=== PATIENT | female | born 1960 | race Caucasian/White ===

== ENCOUNTER → 2016-09-01 | Outpatient (CLI) | payer MEDICARE, OTHER | LOC: HEART 5 10:41 | DX: J44.9 Chronic obstructive pulmonary disease, unspecified (principal); F17.210 Nicotine dependence, cigarettes, uncomplicated; R94.2 Abnormal results of pulmonary function studies | CPT/HCPCS: 94060; 94729 ==

== ENCOUNTER → 2016-09-16 | Outpatient (CLI) | payer MEDICARE, OTHER | LOC: KOH-I 09:36 | DX: I73.9 Peripheral vascular disease, unspecified (principal) | CPT/HCPCS: 93926 ==

== ENCOUNTER → 2016-09-19 | Outpatient (CLI) | payer MEDICARE, OTHER | LOC: KOH-I 14:41 | DX: M25.561 Pain in right knee (principal); I77.1 Stricture of artery | CPT/HCPCS: 73564 ==

== ENCOUNTER → 2020-12-04 | Outpatient (CLI) | payer MEDICARE, OTHER | LOC: RAD 07:39 | DX: R13.10 Dysphagia, unspecified (principal); R09.89 Other specified symptoms and signs involving the circulatory and respiratory systems | CPT/HCPCS: 74220; 74230; 92611-GN ==

== ENCOUNTER → 2021-04-08 | Outpatient (CLI) | payer MEDICARE, OTHER | LOC: KOH-I 12:25 | DX: J18.9 Pneumonia, unspecified organism (principal); R91.8 Other nonspecific abnormal finding of lung field | CPT/HCPCS: 71046 ==

== ENCOUNTER → 2021-05-18 | Outpatient (CLI) | payer MEDICARE, OTHER | LOC: HEART 5 15:09 | DX: J84.112 Idiopathic pulmonary fibrosis (principal); R91.8 Other nonspecific abnormal finding of lung field | CPT/HCPCS: 71046; 94060; 94729 ==

== ENCOUNTER → 2021-06-15 | Outpatient (CLI) | payer MEDICARE, OTHER | LOC: KOH-I 12:55 | DX: R94.2 Abnormal results of pulmonary function studies (principal); J44.9 Chronic obstructive pulmonary disease, unspecified | CPT/HCPCS: 71250 ==

== ENCOUNTER → 2021-06-17 | Outpatient (CLI) | payer MEDICARE, OTHER | LOC: ECHO 10:30 | DX: R01.1 Cardiac murmur, unspecified (principal); I27.20 Pulmonary hypertension, unspecified; I08.8 Other rheumatic multiple valve diseases | CPT/HCPCS: ECHO; 93306 ==

== ENCOUNTER 2021-06-27 14:34 | Inpatient (IN) | payer MEDICARE, OTHER ==
[~2021-06-27] VITALS: Ht 165.1 cm; Wt 67.2 kg
[2021-06-27 15:39] LABS: HEMOGLOBIN 10.1 gm/dl (12.3-15.3); RED BLOOD COUNT 3.88 M/UL (4.00-5.10); WHITE BLOOD COUNT 20.2 K/UL (4.5-11.0)
[2021-06-27 16:58] LABS: BUN/CREATININE RATIO 15 (0-10)
[2021-06-28 01:28] LABS: HEMOGLOBIN 9.6 gm/dl (12.3-15.3); RED BLOOD COUNT 3.71 M/UL (4.00-5.10)
[2021-06-28 01:32] LABS: WHITE BLOOD COUNT 9.9 K/UL (4.5-11.0)
[2021-06-28] MEDS ORDERED: ESOMEPRAZOLE MA40 MG PO (08:58)
[2021-06-28] MEDS ORDERED: FAMOTIDINE20 MG PO (08:59)
[2021-06-28] MEDS ORDERED: PEPCID20 MG PO (08:59)
[2021-06-28] MEDS ORDERED: LEVOTHYROXINE75 MCG PO (08:59)
[2021-06-28] MEDS ORDERED: CYCLOBENZAPRINE10 MG PO (09:00)
[2021-06-28] MEDS ORDERED: ONDANSETRON HCL4 MG PO (09:00)
[2021-06-28] MEDS ORDERED: BELSOMRA10 MG PO (09:01)
[2021-06-28] MEDS ORDERED: MONTELUKAST SOD10 MG PO (09:01)
[2021-06-28] MEDS ORDERED: ROPINIROLE HCL0.5 MG PO (09:01)
[2021-06-28] MEDS ORDERED: LORATADINE10 MG PO (09:02)
[2021-06-28] MEDS ORDERED: ROPINIROLE HCL2 MG PO (09:02)
[2021-06-28] MEDS ORDERED: GABAPENTIN300 MG PO (09:03)
[2021-06-28] MEDS ORDERED: DULOXETINE HCL30 MG PO (09:03)
[2021-06-28] MEDS ORDERED: ARTANE 2MG TABLE2 MG PO (09:03)
[2021-06-28] MEDS ORDERED: LINZESS145 MCG PO (09:04)
[2021-06-28] MEDS ORDERED: PROAIR HFA8.5 GM INH (09:05)
[2021-06-28] MEDS ORDERED: ECOTRIN81 MG PO (09:06)
--- NOTE | 2021-06-28 16:37 | NUR ---
OTHRO VITALS AT 1637 LAYING 155/88 BP 81 HR SITTING 165/84 BP 97 HR STANDING 113/63 BP 94 HR
[2021-06-29 05:06] LABS: HEMOGLOBIN 9.7 gm/dl (12.3-15.3); RED BLOOD COUNT 3.74 M/UL (4.00-5.10)
[2021-06-29 05:13] LABS: BUN/CREATININE RATIO 9 (0-10)
[2021-06-29 05:25] LABS: WHITE BLOOD COUNT 5.9 K/UL (4.5-11.0)
[2021-06-30 03:16] LABS: HEMOGLOBIN 10.6 gm/dl (12.3-15.3); RED BLOOD COUNT 4.11 M/UL (4.00-5.10); WHITE BLOOD COUNT 6.5 K/UL (4.5-11.0)
[2021-06-30 03:51] LABS: BUN/CREATININE RATIO 9 (0-10)
[2021-06-30] MEDS ORDERED: ATORVASTATIN CA40 MG PO (11:36)
[2021-06-30] MEDS ORDERED: LISINOPRIL10 MG PO (11:36)
[2021-06-30] MEDS ORDERED: HYGROTON TAB 2525 MG PO (11:36)
== END 2021-06-30 13:13 | disposition home or self-care (01) | DRG 872 ==
LOC: ER1 14:34 → M/S 17:15 → CDU 17:15 → M/S 18:14
PROVIDERS: Emergency Medicine; Physician Assistant; ADMIT Internal Medicine
DX: A41.51 Sepsis due to Escherichia coli [E. coli] (principal); N30.00 Acute cystitis without hematuria; I69.354 Hemiplegia and hemiparesis following cerebral infarction affecting left non-dominant side; I16.0 Hypertensive urgency; Z20.822 Contact with and (suspected) exposure to COVID-19; I10 Essential (primary) hypertension; I25.10 Atherosclerotic heart disease of native coronary artery without angina pectoris; D72.829 Elevated white blood cell count, unspecified; I65.22 Occlusion and stenosis of left carotid artery; T44.4X5A Adverse effect of predominantly alpha-adrenoreceptor agonists, initial encounter; I95.1 Orthostatic hypotension; D64.9 Anemia, unspecified; Z85.9 Personal history of malignant neoplasm, unspecified; Z95.828 Presence of other vascular implants and grafts; Z86.79 Personal history of other diseases of the circulatory system; Z79.01 Long term (current) use of anticoagulants; Z79.82 Long term (current) use of aspirin; Z88.1 Allergy status to other antibiotic agents; Z88.5 Allergy status to narcotic agent; Z82.49 Family history of ischemic heart disease and other diseases of the circulatory system
CPT/HCPCS: 36415; 70450; 70496; 70498; 70551; 71045; 80048; 80053; 81001; 82550; 82553; 82607; 83540; 83550; 83605; 83735; 83880; 84100; 84439; 84443; 84484; 85025; 85027; 85610; 85652; 85730; 86140; 87040; 87077; 87086; 87186; 93005; 93880; 94640; 94760; 97161; 97165; J0360; J0696; J1650; J2405; J7030; Q9967; U0002